=== PATIENT | male | born 1995 | race Caucasian/White ===

== ENCOUNTER 2019-08-23 21:36 | Emergency (ER) | payer SELFPAY ==
[~2019-08-23] VITALS: Ht 175.3 cm; Wt 76.2 kg
--- NOTE | 2019-08-23 21:57 | NUR ---
Dr. Gonzalez at bedside for MSE.
[2019-08-23 22:30] VITALS: BP 128/61
--- NOTE | 2019-08-23 22:30 | NUR ---
Patient discharged to home in stable conditon. Written and verbal after care instructions given. Patient verbalizes understanding of instructions. Pt ambulated out of ER with steady gait, no acute signs of distress, VSS, all belongings taken.
[2019-08-23 23:01] LABS: *OCCULT BLOOD STOOL POSITIVE (NEGATIVE)
== END 2019-08-23 22:34 | disposition home or self-care (01) ==
LOC: EDBD 21:39 → ER 21:39
DX: K52.9 Noninfective gastroenteritis and colitis, unspecified (principal); K64.4 Residual hemorrhoidal skin tags; R19.5 Other fecal abnormalities
CPT/HCPCS: A4663